=== PATIENT | female | born 1990 | race African-American/Black ===

== ENCOUNTER 2017-07-03 12:27 | Emergency (ER) | payer MEDICAID, OTHER ==
[~2017-07-03] VITALS: Ht 162.6 cm; Wt 59.0 kg
[2017-07-03 12:30] VITALS: BP 110/63
[2017-07-03] MEDS ORDERED: FLUCONAZOLE 150MG TABLET PO ONE (12:45)
== END 2017-07-03 12:51 | disposition home or self-care (01) ==
LOC: ER 12:47
DX: B37.89 Other sites of candidiasis (principal)
CPT/HCPCS: 81025; 99282

== ENCOUNTER 2017-12-15 09:43 | Emergency (ER) | payer MEDICAID, OTHER ==
[~2017-12-15] VITALS: Ht 167.6 cm; Wt 71.0 kg
[2017-12-15 09:59] VITALS: BP 106/61
== END 2017-12-15 13:19 | disposition home or self-care (01) ==
LOC: ER 11:19
DX: M54.89 Other dorsalgia (principal); F12.10 Cannabis abuse, uncomplicated; V43.52XA Car driver injured in collision with other type car in traffic accident, initial encounter; Y93.89 Activity, other specified; Y92.488 Other paved roadways as the place of occurrence of the external cause
CPT/HCPCS: 99282

== ENCOUNTER 2021-07-13 13:33 | Emergency (ER) | payer MEDICAID ==
[~2021-07-13] VITALS: Ht 170.2 cm; Wt 59.0 kg
[2021-07-13 13:41] VITALS: BP 122/58
== END 2021-07-13 14:15 | disposition left against medical advice (07) ==
LOC: ER 13:33
DX: Z53.21 Procedure and treatment not carried out due to patient leaving prior to being seen by health care provider (principal)

== ENCOUNTER 2021-09-14 11:40 | Emergency (ER) | payer MEDICAID ==
[~2021-09-14] VITALS: Ht 170.2 cm; Wt 72.0 kg
[2021-09-14 11:56] VITALS: BP 99/50
[2021-09-14] MEDS ORDERED: CEFTRIAXONE SODIUM 500 MG/VIAL IM ONE (12:15)
[2021-09-14] MEDS ORDERED: ACETAMINOPHEN 325MG TABLET PO ONE (12:15)
[2021-09-14] MEDS ORDERED: LIDOCAINE HCL 1% 20ML VIAL (Pyxis) INJ INFIL ONE (12:15)
[2021-09-14] MEDS ORDERED: DOXY100C5 MT (13:04)
[2021-09-14] MEDS ORDERED: METR-167 MT (13:44)
[2021-09-14 14:29] LABS: CLARITY URINE CLOUDY (CLEAR); COLOR URINE YELLOW (YELLOW); KETONES URINE TRACE (NEGATIVE); LEUKOCYTE ESTERASE URINE 3+ (NEGATIVE); NITRITE URINE NEGATIVE (NEGATIVE); OCCULT BLOOD URINE NEGATIVE (NEGATIVE); PH URINE 6.5 (4.5-8.0); PROTEIN URINE TRACE (NEGATIVE); SPECIFIC GRAVITY URINE 1.026 (1.005-1.030)
== END 2021-09-14 14:07 | disposition home or self-care (01) ==
LOC: ER 12:27
DX: N39.0 Urinary tract infection, site not specified (principal); F12.10 Cannabis abuse, uncomplicated
CPT/HCPCS: 81003; 81025; 87086; 87210; 87491; 87591; 96372; 99284; J0696; J3490

== ENCOUNTER 2023-01-05 18:42 | Emergency (ER) | payer OTHER, MEDICAID ==
[~2023-01-05] VITALS: Ht 170.2 cm; Wt 78.0 kg
[~2023-01-05 18:42] MED LIST: DOXY100C5 MT; METR-167 MT
[2023-01-05 18:50] VITALS: BP 114/57
[2023-01-05] MEDS ORDERED: CETIRIZINE 10MG TABLET PO SCH (19:45)
[2023-01-05] MEDS ORDERED: DIPHENHYDRAMINE 25MG CAPSULE PO ONE (19:45)
== END 2023-01-05 20:05 | disposition left against medical advice (07) ==
LOC: ER 18:49
DX: R21 Rash and other nonspecific skin eruption (principal); D64.9 Anemia, unspecified; F12.10 Cannabis abuse, uncomplicated
CPT/HCPCS: 99281; Z7610; Q0163

== ENCOUNTER 2023-04-18 00:41 | Emergency (ER) | payer OTHER, MEDICAID ==
[~2023-04-18] VITALS: Ht 162.6 cm; Wt 132.0 kg
[2023-04-18 01:07] VITALS: BP 103/86
[2023-04-18] MEDS ORDERED: HYDROCODONE/ACETAMINOPHEN 5/325MG TABLET PO ONE (01:45)
[2023-04-18] MEDS ORDERED: TETANUS, DIPHTHERIA, PERTUSSIS VAC/PF 0.5ML (>10YR OLD) IM ONE ×2 (01:45→03:45)
[2023-04-18] MEDS ORDERED: HYDROCODONE/ACETAMINOPHEN 5/325MG TABLET PO NR (03:30)
[2023-04-18] MEDS ORDERED: CYCL10TA21 MT (04:25)
[2023-04-18] MEDS ORDERED: NAPR-1176 MT (04:25)
== END 2023-04-18 04:41 | disposition home or self-care (01) ==
LOC: ER 00:41
DX: S09.90XA Unspecified injury of head, initial encounter (principal); S39.012A Strain of muscle, fascia and tendon of lower back, initial encounter; V49.9XXA Car occupant (driver) (passenger) injured in unspecified traffic accident, initial encounter; Y93.89 Activity, other specified; Y92.89 Other specified places as the place of occurrence of the external cause; Y99.8 Other external cause status
CPT/HCPCS: 71045; 72128; 72131; 81025; 90471; 90715; 99285

== ENCOUNTER 2025-11-07 10:21 | Emergency (ER) | payer MEDICAID, OTHER ==
[~2025-11-07] VITALS: Ht 170.2 cm; Wt 86.0 kg
[~2025-11-07 10:21] MED LIST changes: +CYCL10TA21 MT; +NAPR-1176 MT
[2025-11-07 10:24] VITALS: O2SAT 100
[2025-11-07 10:28] VITALS: BP 115/62; PULSE 81; RESP 16; TEMP 36.9; O2SAT 100
== END 2025-11-07 11:38 | disposition left against medical advice (07) ==
LOC: ER 10:21
DX: R07.9 Chest pain, unspecified (principal)
CPT/HCPCS: 71045; 93005; 99281